=== PATIENT | male | born 1975 | race African-American/Black ===

== ENCOUNTER → 2016-07-26 11:18 | Emergency (ER) | payer OTHER ==
[~2016-07-26 11:18] MED LIST: ALBUTEROL17 GM INH; BREO ELLIPTA 11 EACH INH; FLONASE 0.05% N16 G1; MELOXICAM7.5 MG PO; PREDNISONE10 MG PO; ZYRTEC10 M1 PO
== END | disposition home or self-care (01) ==
LOC: CFTX 11:18
DX: J06.9 Acute upper respiratory infection, unspecified (principal); J45.909 Unspecified asthma, uncomplicated
CPT/HCPCS: 99282

== ENCOUNTER → 2016-08-24 | Outpatient (CLI) | payer OTHER ==
--- NOTE | ~2016-08-24 | CT55 ---
[facility] A Service [facility] RADIOLOGY TEXT RESULTS PATIENT: EFRAIN SCHUMACHER LOCATION: [facility] : 79 UNIT #: [id number] AGE: [address]: Jossie Grullon SEX: M ORDER DR: [id number] [facility] [address] [place], [place] [address] [id number] O MR#: [id number] Acc #: [id number] NAME: EFRAIN SCHUMACHER : 1975 SEX: M STUDY DATE/TIME: 08/24/2016 9:40 UNIT: [facility] ROOM: STUDY DESCRIPTION: CT Chest W Con Attending Physician: Jossie Grullon A.P.R.N. Referring Physician: Jossie Grullon A.P.R.N. Ordering Physician: Jossie Grullon A.P.R.N. [facility] RE[facility] This report is preliminary unless electronic signature is present EXAM CT chest with contrast INDICATIONS Sarcoidosis. Diagnosed to 2014. Shortness of air since 2013. Followup study. PROCEDURE Contrast-enhanced CT of the chest, 100 mL of Isovue-[address] exam was performed with one or more of the following radiation dose reduction techniques: automatic control, adjustment of mA and/or kV according to patient size, and iterative reconstruction. COMPARISON None. FINDINGS Patchy areas of parenchymal scarring in both lungs, greatest in the upper lobes, left slightly greater than right. There is no dense confluent consolidation. No pleural fluid or pneumothorax. There is diffuse homogeneous adenopathy in both fareed and throughout the mediastinum. An index right hilar node measures 2.8 cm. Subcarinal adenopathy measuring approximately 6.2 x 2.2 cm. No acute findings in included upper abdomen. No aggressive appearing bone lesion. IMPRESSION 1. Findings in keeping with provided history of sarcoidosis including patchy areas of scarring throughout both lungs and diffuse adenopathy throughout both fareed and mediastinum. 2. No acute dense consolidation. Dictated by... [facility] A Service [facility] RADIOLOGY TEXT RESULTS PATIENT: EFRAIN SCHUMACHER LOCATION: [facility] : 79 UNIT #: [id number] AGE: [address]: Jossie Grullon SEX: M ORDER DR: Jan Garcia M.D. THIS IS AN ELECTRONICALLY VERIFIED REPORT Jan Garcia M.D. at 08/28/2016 9:54 AM HILDA/maverick TD: 08/24/2016 12:22 JOB #: [id number] MEDICAL IMAGING REPORT Page 1 of 1 COPY
[2016-08-24 15:16] LABS: POC - CREATININE 0.99 mg/dL (0.64-1.27); POC - GFR >60.0 mL/min (>60)
== END | disposition home or self-care (01) ==
LOC: CCAT 09:02
PROVIDERS: Nurse Practitioner Adult Health
DX: R06.02 Shortness of breath (principal); R93.8 Abnormal findings on diagnostic imaging of other specified body structures; J98.4 Other disorders of lung; R59.0 Localized enlarged lymph nodes; Z87.09 Personal history of other diseases of the respiratory system
CPT/HCPCS: 71260; 82565; 93306; Q9967

== ENCOUNTER → 2016-09-22 | Day surgery (SDC) | payer OTHER ==
--- NOTE | ~2016-09-22 | OR ---
Unit #: [id number] #: [id number] Patient: EFRAIN SCHUMACHER 231967 [address] [place], [place] [address] [id number] O MR#: [id number] NAME: EFRAIN SCHUMACHER ROOM: Date of Procedure: 09/22/2016 Admission Date: 09/22/2016 Surgeon: Sunny Landis M.D. : 1975 Attending Physician: Sunny Landis M.D. Primary Care Physician: Generic Doctor Not In System OPERATIVE REPORT PROCEDURE PERFORMED Bronchoscopy. INDICATIONS FOR PROCEDURE Sarcoidosis with infiltrates. PREOPERATIVE DIAGNOSES Sarcoidosis with infiltrates. INTRAOPERATIVE FINDINGS Multiple areas of bronchial pits, but no endobronchial lesion. POSTOPERATIVE DIAGNOSES Multiple areas of bronchial pits, but no endobronchial lesion. DESCRIPTION OF PROCEDURE Mr. Schumacher was brought to endoscopy and given sedation via MAC. Scope was placed orally through a bite block and vocal cords within normal limits. Trachea is within normal limits. Main nathan is sharp. His right upper lobe, right middle lobe, and right lower lobe were all within normal limits except actually both right and left had various areas of bronchial pits. The right middle lobe was washed and the right lower lobe was washed. He had actually a fairly large right middle lobe. It looked like there was more opening than what would have expected. Nonetheless, there was nothing wrong with that. On the left side, he had more bronchial pits, but other than that, there was no endobronchial lesions in the left upper lobe including the lingula or the left lower lobe. Washing was done of lingula briefly, left lower lobe, particularly superior segment and then a BAL was done of left lower lobe superior segment. The scope was then placed into the lingula and he was given 2 mL of epi 1:10,000. Following that, four transbronchial biopsies were done under fluoroscopy to avoid coming close to the pleura. There was mild bleeding, probably no more than 10 mL or so. No obvious complications were noted from this procedure, but chest x-ray will be done prior to letting the patient go home. Oxygenation is a little low postop, but this will be supplemented. Dictated by... Rhea Ocampo/ana laura Unit #: [id number] #: [id number] Patient: EFRAIN SCHUMACHER TD: 09/23/2016 03:14 JOB #: [id number] CC: [facility]. OPERATIVE REPORT Page 1 of 1 X Sunny Landis MD PROCEDURE OPERATIVE NOTE
--- NOTE | ~2016-09-22 | CR72 ---
[facility] A Service of [facility] & [facility] RADIOLOGY TEXT RESULTS PATIENT: EFRAIN SCHUMACHER LOCATION: [facility] : 79 UNIT #: [id number] AGE: [address]: Sunny Landis MD SEX: M ORDER DR: [id number] [facility] [address] [place] [address] [place], [place] [address] [id number] O MR#: [id number] Acc #: [id number] NAME: EFRAIN SCHUMACHER : 1975 SEX: M STUDY DATE/TIME: 09/22/2016 12:37 UNIT: [facility] ROOM: STUDY DESCRIPTION: CR Chest Single View Portable Attending Physician: Sunny Landis M.D. Ordering Physician: Sunny Landis M.D. Primary Care Physician: Generic Doctor Not In System MEDICAL IMAGING REPORT This report is preliminary unless electronic signature is present EXAM Portable chest INDICATION Shortness of breath and cough today after a bronchoscopy. COMPARISON Comparison with 06/05/2014. FINDINGS There is no evidence for a pneumothorax. There are stable bilateral areas of scarring and interstitial linear nodular opacities. No new infiltrate. Heart size stable. IMPRESSION No significant change. No evidence for pneumothorax. Dictated by... Louie Estrella M.D. THIS IS AN ELECTRONICALLY VERIFIED REPORT Louie Estrella M.D. at 09/23/2016 8:35 AM IVÁN/susu TD: 09/22/2016 16:00 JOB #: [id number] MEDICAL IMAGING REPORT Page 1 of 1 COPY
[2016-09-22 14:06] LABS: BF TOTAL NUCLEATED CELL COUNT 94 CMM (0-100); BODY FLUID APPEARANCE CLEAR; BODY FLUID RBC <10000 CMM; BODY FLUID SOURCE BRONCHIAL LAVAGE
== END | disposition home or self-care (01) ==
LOC: COPS 09:55
PROVIDERS: Internal Medicine Pulmonary Disease
DX: D86.9 Sarcoidosis, unspecified (principal); J45.909 Unspecified asthma, uncomplicated; Z87.442 Personal history of urinary calculi; Z79.2 Long term (current) use of antibiotics; Z79.899 Other long term (current) drug therapy; Z98.890 Other specified postprocedural states
CPT/HCPCS: 71010; 76000; 87070; 87102; 87106; 87116; 87205; 87206; 87252; 87254; 88108; 88305; 88312; 89051; J0171

== ENCOUNTER → 2017-01-26 | Outpatient (CLI) | payer OTHER ==
--- NOTE | ~2017-01-26 | CT57 ---
[facility] A Service of [facility] & [facility] RADIOLOGY TEXT RESULTS PATIENT: EFRAIN SCHUMACHER LOCATION: [facility] : 79 UNIT #: [id number] AGE: [address]: Sunny Landis MD SEX: M ORDER DR: [id number] [place] [id number] [facility]. [place], [place] [address] [id number] O MR#: [id number] Acc #: [id number] NAME: EFRAIN SCHUMACHER : 1975 SEX: M STUDY DATE/TIME: 01/26/2017 13:43 UNIT: [facility] ROOM: STUDY DESCRIPTION: CT Chest Wo Cont Attending Physician: Sunny Landis M.D. Ordering Physician: Sunny Landis M.D. 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 Chest tightness for [address] COM[address] chest 08/24/2016. AP portable chest 09/22/2016. PROCEDURE 5 mm noncontrast axial images through the chest. Sagittal and coronal reformatted images were obtained. This CT exam was performed with one or more of the following radiation dose reduction techniques: automatic exposure control, adjustment of mA and/or kV according to patient size, and iterative reconstruction. FINDINGS Diffuse interstitial thickening and interstitial nodular thickening is seen within both lungs. Findings are greatest in the upper lobe distribution. There is band-like guarding within bilateral upper lobes with traction bronchiolectasis and bronchial wall thickening with suprahilar retraction, left greater than right. Overall, the findings are improved compared to the CT chest from 08/24/2016 suggesting interval response to therapy in this patient with history of sarcoidosis. Previously described subcarinal soft tissue mass or aggregate has markedly diminished, now measuring only 2.2 x 1.2 cm in aggregate compared to nearly 6.2 x 2.2 cm on the previous exam. The hilar adenopathy is difficult to measure due to lack of IV contrast, but that, too, appears STS. [facility] A Service of [facility] & [facility] RADIOLOGY TEXT RESULTS PATIENT: EFRAIN SCHUMACHER LOCATION: [facility] : 79 UNIT #: [id number] AGE: [address]: Sunny Landis MD SEX: M ORDER DR: significantly improved. Left hilar node currently measures 9 mm compared to nearly 1.8 cm on the previous study. No new airspace disease is identified. Heart size is within normal limits. No pericardial effusion or pleural effusion is seen. Included portions of the upper abdominal organs have a normal noncontrast appearance. Osseous structures are within normal limits. IMPRESSION 1. Interstitial thickening and reticular - nodular interstitial thickening within both lungs, raising the upper lobes, with bilateral upper lobe traction bronchiectasis and suprahilar retraction. Mediastinal and bilateral hilar adenopathy. These findings appear improved compared to 08/24/2016, suggesting interval response to therapy in this patient with known history of sarcoidosis. 2. No evidence of new, superimposed acute airspace disease. Dictated by... Telma Shea M.D. THIS IS AN ELECTRONICALLY VERIFIED REPORT Telma Shea M.D. at 01/30/2017 10:[address] [facility]/collette TD: 01/29/2017 20:21 JOB #: [id number] MEDICAL IMAGING REPORT Page 1 of 1 COPY
== END | disposition home or self-care (01) ==
LOC: CCAT 13:22
DX: D86.0 Sarcoidosis of lung (principal); J84.10 Pulmonary fibrosis, unspecified; J92.9 Pleural plaque without asbestos; R59.0 Localized enlarged lymph nodes; R91.8 Other nonspecific abnormal finding of lung field; J47.9 Bronchiectasis, uncomplicated
CPT/HCPCS: 71250